=== PATIENT | female | born 1970 | race Caucasian/White ===

== ENCOUNTER → 2024-03-31 07:00 | Outpatient (REF) | payer BC, SELFPAY | LOC: WDC 07:00 | PROVIDERS: ATTENDING PHYSICIAN Family Medicine | DX: Z12.31 Encounter for screening mammogram for malignant neoplasm of breast (principal) | CPT/HCPCS: 77063; 77067 ==

== ENCOUNTER 2024-03-31 15:08 | Emergency (ER) | payer BC, SELFPAY ==
[2024-03-31 15:10] VITALS: BP 119/77
--- NOTE | 2024-03-31 16:14 | ED.GENMED ---
Addendum entered and electronically signed by Shani Celis PA-C 04/06/24 03:07:
aluminum finger splint applied; in extension
Original Note:
History of Present Illness
General
Chief Complaint: Musculo-Skeletal Complaint
Source: patient
Exam Limitations: none
Time Seen by Provider: 03/31/24 15:24
Nursing documentation reviewed up to this point in time: agreed with
History of Present Illness
History of Present Illness:
pt is a 53 y/o F R hand dominant
here with L finger DIP injury index finger
says she was vigorously rubbing her hands to get adhesive off and suddenly felt snap in her index finger and now she cannot straighten her index fingertip
she has minimal pain
no swelling
normal sensation
Past History
Past History
ED Past Medical History: Asthma
ED Past Surgical History: Gynecological
Social History
Tobacco: Non-smoker
Alcohol: None
Drug: None
Personal:
Living: with family
Employment: Employed
Review of Systems
Review of Systems
Allergies reviewed?: Yes
All Other Systems: Not applicable
Phy Exam
Physical Exam
Physical Exam:
GENERAL: Alert , in no apparent distress, comfortable at rest
HEAD: NCAT
CV: < 2 sec cap refill
NEUROLOGICAL: Alert and oriented, no focal neuro deficits, , 5/5 strength, sensation intact, ambulation slight limp right leg
SKIN: Warm and dry, no redness, no warmth
MUSCULOSKELETAL: mallet finger deformity L index fingertip
minimal tednress DIP joint
PSYCH: Normal and appropriate interaction.
Course
Orders/Labs/Results
Orders:
Orders
03/31/24 15:13
CR Finger(s)/thumb Min 2 Vw Lt Urgent
Comment:
Reason For Exam: pain
Indicate Which Finger:: Index Finger
Vital Signs
Initial and Last Documented VS:
Initial Vital Signs
Temp Pulse Resp BP Pulse Ox
98.2 F 82 18 119/77 99
03/31/24 15:10 03/31/24 15:10 03/31/24 15:10 03/31/24 15:10 03/31/24 15:10
Last Documented Vital Signs
Temp Pulse Resp BP Pulse Ox
98.2 F 82 18 119/77 99
03/31/24 15:10 03/31/24 15:10 03/31/24 15:10 03/31/24 15:10 03/31/24 15:10
MDM/Problems Addressed
Differential Diagnosis Includes:
extensor tendon deficit, fracture
MDM/Problems Addressed:
[age] y/o F
mallet finger deformity
xray indep reviewed, small avulsion fx middle phalanx where tendon inserts
splinted
hand f/u
*Critical Care Note
Total Time (30-74mins, 75-104mins- exclusive of procedures): Not Applicable
ED Attending Note
-
Portions of this chart may have been created with voice recognition software.� Occasional wrong word or��sound alike� substitutions may have occurred due to the inherent limitations of voice recognition software.
Discharge Plan
Departure
Patient Disposition: Home (Routine Discharge)
Date of Disposition: 03/31/24
Time of Disposition: 16:22
Patient with high blood pressure during this ER visit?: No
Condition: Fair
Covid-19: Not Applicable
Discharge Problem:
Mallet deformity of index finger, Finger fracture, left
Instructions: Finger Sprain (DC), Finger Fracture ED
Referrals:
Nitin Olivares MD [Active] - Follow up in 2-3 days (orthopedics)
Romeo Vega MD [Family Provider] -
Activity Restrictions/Additional Instructions:
YOU HAVE AN AVULSION FRACTURE FROM A TENDON INJURY (EXTENSOR TENDON) OF YOUR DIP JOINT.
IT IS CALLED A MALLET DEFORMITY
WEAR A SPLIN ( YOU CAN GOOGLE MALLET FINGER SPLINT IF YOU PREFER)
TYLENOL OR MOTRIN FOR PAIN
FOLLOW UP WITH ORTHOPEDICS
CALL FOR AN APPOINTMENT
RETURN FOR ANYCONCERNS.
Interventions
Interventions:
*Risk Screen - Suicide Last Done: 03/31/24 15:10
*General Assessment Last Done: 03/31/24 15:10
*Neglect/Abuse Screening Last Done: 03/31/24 15:10
*ED COVID-19 Vaccine History Last Done: 03/31/24 15:10
*Nursing Disposition Last Done: 03/31/24 16:44
Discharge Date and Time
Discharge Date/Time: 03/31/24 16:44
Print Language: [place]
== END 2024-03-31 16:44 | disposition home or self-care (01) ==
LOC: EMR 15:08
PROVIDERS: EMERGENCY PHYSICIAN Student in an Organized Health Care Education/Training Program; FAMILY PHYSICIAN Family Medicine
DX: S62.621A Displaced fracture of middle phalanx of left index finger, initial encounter for closed fracture (principal); S62.631A Displaced fracture of distal phalanx of left index finger, initial encounter for closed fracture; M20.012 Mallet finger of left finger(s); X50.3XXA Overexertion from repetitive movements, initial encounter
CPT/HCPCS: 99283; 29130; 73140

== ENCOUNTER → 2024-04-09 08:26 | Outpatient (REF) | payer BC, SELFPAY | LOC: WDC 08:26 | PROVIDERS: ATTENDING PHYSICIAN Family Medicine | DX: R92.8 Other abnormal and inconclusive findings on diagnostic imaging of breast (principal) | CPT/HCPCS: 76642 ==

== ENCOUNTER → 2024-04-14 06:26 | Outpatient (REF) | payer BC, SELFPAY | LOC: WDC 06:26 | PROVIDERS: ATTENDING PHYSICIAN Family Medicine | DX: R92.1 Mammographic calcification found on diagnostic imaging of breast (principal) | CPT/HCPCS: 88305; 19081; 76098; A4648 ==

== ENCOUNTER → 2024-10-30 10:35 | Outpatient (REF) | payer BC, SELFPAY | LOC: WDC 10:35 | PROVIDERS: ATTENDING PHYSICIAN Family Medicine | DX: N63.10 Unspecified lump in the right breast, unspecified quadrant (principal) | CPT/HCPCS: 76642; 77061; 77065 ==

== ENCOUNTER → 2025-04-02 08:09 | Outpatient (REF) | payer BC, SELFPAY | LOC: WDC 08:09 | PROVIDERS: ATTENDING PHYSICIAN Family Medicine | DX: Z12.31 Encounter for screening mammogram for malignant neoplasm of breast (principal) | CPT/HCPCS: 77063; 77067 ==